=== PATIENT | female | born 1990 | race Caucasian/White ===

== ENCOUNTER 2020-02-02 11:22 | Outpatient (RCR) | payer OTHER, SELFPAY ==
[2020-02-02 13:25] LABS: Hematocrit 37.7 % (37.0-47.0); Hemoglobin 13.4 g/dL (12.0-15.0)
[2020-02-02 13:37] LABS: Glucose 1 Hour PP 50gm Dose 100 mg/dL
[2020-02-02 14:18] LABS: HIV 1/2 Ab P24 Ag Result Negative (Negative)
[2020-02-03 10:49] LABS: Rapid Plasma Reagin Non-Reactive (NonReactive)
[2020-02-03] MEDS: RHO(D) IMMUNE GLOBULIN 300 MCG SYRINGE IM (15:49)
== END 2020-05-02 23:59 | disposition home or self-care (01) ==
LOC: ANHLAB 11:22
PROVIDERS: Visit Provider Obstetrics & Gynecology
DX: Z11.4 Encounter for screening for human immunodeficiency virus [HIV] (principal); Z29.13 Encounter for prophylactic Rho(D) immune globulin; O36.0990 Maternal care for other rhesus isoimmunization, unspecified trimester, not applicable or unspecified; Z3A.00 Weeks of gestation of pregnancy not specified
CPT/HCPCS: 36415; 82947; 85014; 85018; 85461; 86592; 86703; 90384; 96372; G0432; J2790

== ENCOUNTER 2020-03-29 11:28 | Observation (INO) | payer OTHER, SELFPAY ==
[2020-03-29] VITALS (98 sets, daily range): BP systolic 73–115; BP diastolic 43–76; PULSE 64–104; TEMP 36.6; O2SAT 90–100
--- NOTE | 2020-03-29 11:28 | OBADM ---
This patient, Vida Vázquez, admitted to the OB room OB Post 112 for observation. Patient/family oriented to hospital policies and general routines including ID bracelet, bed and alarms, visiting hours, pain management, procedures, bathroom and other care routines, personal items, smoking policy, room service/diet, and visiting hours. Patient/Family are encouraged to report perceived risks to care and to ask questions if they do not understand what they are told or what they should do.
[2020-03-29 12:43] LABS: Basophils Percent Auto 0.5 % (0.2-1.2); Eosinophils Absolute Auto 0.1 K/mm3 (0-0.3); Eosinophils Percent Auto 1.1 % (0-4.4); Hematocrit 36.2 % (37.0-47.0); Hemoglobin 12.8 g/dL (12.0-15.0); Immature Granulocyte Absolute 0.12 K/mm3 (0.00-0.031); Immature Granulocyte Percent A 1.4 % (0-0.5); Lymphocytes Absolute Auto 2.07 K/mm3 (0.9-3.2); Mean Corpuscular HGB Conc 35.4 g/dl (32-36); Mean Corpuscular Hemoglobin 34.1 pg (26-34); Mean Corpuscular Volume 96.5 fl (80-100); Mean Platelet Volume 10.4 fl (7.4-10.4); Monocytes Absolute Auto 0.7 K/mm3 (0.1-0.6); Monocytes Percent Auto 8.7 % (2.6-8.5); Neutrophils Absolute Auto 5.2 K/mm3 (1.3-6.7); Neutrophils Percent Auto 63.3 % (45.5-73.1); Platelet Count Result 131 k/mm3 (150-375); Red Blood Count 3.75 M/mm3 (4.2-5.4); White Blood Count 8.3 K/mm3 (4.5-10.0)
[2020-03-29 12:50] LABS: Add Urine Microscopic? YES; Appearance Urine Clear (Clear); Bacteria Urine 3+ /hpf; Bilirubin Urine Negative (Negative); Blood Urine 3+ (Negative); Color Urine Yellow (Yellow); Glucose Urine UA 1+ mg/dL (Negative); Ketones Urine Negative (Negative); Leukocyte Esterase Ur Negative LEU/UL (NEGATIVE); Mucus Urine Moderate /lpf; Nitrate Urine Positive (Negative); Protein Urine 1+ mg/dL (Negative); Specific Grav Ur 1.027 (1.001-1.035); Squamous Epithelial Cell Urine Few /hpf (Few); Transitional Epi Cells Urine Rare /hpf (None Seen); Urobilinogen Urine Negative mg/dL (<2.0)
[2020-03-29 12:59] LABS: Alanine Aminotransferase 10 U/L (4-35); Albumin Level 3.1 g/dL (3.5-5.1); Alkaline Phosphatase 57 U/L (38-126); Anion Gap 4 mmol/L (8-16); Aspartate Amino Transferase 16 U/L (14-36); Bilirubin,Total 0.6 mg/dL (0.2-1.3); Blood Urea Nitrogen 8 mg/dL (7-17); Calcium 8.8 mg/dL (8.4-10.2); Carbon Dioxide 24 mmol/L (22-30); Chloride 108 mmol/L (98-107); Estimated Glomerular Filt Rate > 60; Glucose 114 mg/dL (65-105); Potassium 3.7 mmol/L (3.4-5.0); Sodium 136 mmol/L (137-145); Uric Acid 3.9 mg/dL (2.5-7.5)
[2020-03-29 13:24] LABS: Total Protein Urine Random 11 mg/dL; Ur Ttl Prot Creatinine Ratio 0.05 mg/mg (0-0.20)
--- NOTE | 2020-03-29 13:48 | PC.NURSE ---
Called Gin Pa CNM with lab result, heart rate and BPs. Orders received.
--- NOTE | 2020-03-29 13:54 | ECG_ITS ---
Measurements Intervals [place] Rate: 80 P: 20 PA: 144 QRS: 37 QRSD: 74 T: 22 QT: 380 QTc: 440 Interpretive Statements SINUS RHYTHM BASELINE ARTIFACT- I, III, AVL NORMAL ECG Electronically Signed On 03-29-2020 14:19:28 [employer] by Sivakumar Nielsen D.O.
--- NOTE | 2020-03-29 14:09 | PC.NURSE ---
Dr. Zhao called from OR. Informed that Gin Bautista CNM was called with report.
--- NOTE | 2020-03-29 14:30 | PC.NURSE ---
Message left at office for Dr. Nielsen for consult.
[2020-03-29] MEDS: ACETAMINOPHEN 500 MG TABLET 1000 MG PO (14:48)
--- NOTE | 2020-03-29 17:55 | PC.NURSE ---
Talked to Dr. Nielsen and report given on pt. Will come to evaluate pt.
--- NOTE | 2020-03-29 18:36 | PC.NURSE ---
Cap Blocker at bedside to examine pt.
--- NOTE | 2020-03-29 18:40 | PC.NURSE ---
Dr. Nielsen here to evaluate pt. No further orders received.
[2020-03-29] MEDS: NITROFURANTOIN MONOHYD MACROCR 100 MG CAP PO (18:43)
--- NOTE | 2020-03-29 18:46 | PM.CNCAR ---
Assessment and Plan Assessment and plan (1) Dizziness: Code(s): R42 - Dizziness and giddiness Status: Acute Assessment and Plan: Probably orthostatic related. Advise to keep well hydrated. If feeling dizzy while standing, advised to sit down and may even need to lie down. Advised to avoid lying on right side due to uterine compression of IVC which prevents adequate venous return. No further cardiac workup is needed. History of Present Illness History of Present Illness Consult date/time: 03/29/20 18:46 Reason for consult: Dizziness and fast HR. 29 [facility] due to symptoms of dizziness and fast HR. No prior cardiac problems. She is 35 weeks . This is her 4th and no issues previously other than gestational diabetes with her 3rd . She has been having steadily higher BP with this at 140's systolic. She reports it started a week ago where she feels her HR is fast and she gets dizziness with it and it happens while in upright position usually standing and sometimes sitting. It does not happen while lying down. She drinks about 2-3 liters of water a day. Her BP was noted to be low once at 73/44 mmHg then it went back up to 100/61 mmHg. Denies other symptoms including chest pain, sob, orthopnea, PND, edema. Reason For Visit: Elevated HR/Dizziness Review of Systems Constitutional: Constitutional: Reports as per HPI, Denies chills and Denies fever(s) Cardiovascular: Cardiovascular: Reports as per HPI, Denies chest pain, Denies leg edema and Reports lightheadedness Respiratory: Respiratory: Reports as per HPI and Denies dyspnea Gastrointestinal: Gastrointestinal: Reports as per HPI and Denies abdominal pain Genitourinary: Genitourinary: Reports as per HPI and Denies dysuria Musculoskeletal: Musculoskeletal: Reports as per HPI Neurologic: Reports as per HPI, Reports dizziness and Denies syncope PMF Past Medical History Medical History Currently Exposure to COVID-19 virus History of depression Surgical History Surgical History History of delivery History of umbilical hernia repair Family History Family History Father Cerebrovascular accident Hypertension Sibling Hypertension Grandparent Diabetes mellitus Hypertension Social History Social History Smoking status: Former smoker Tobacco type: cigarettes Alcohol intake: never 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 [employer] 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 Home Medications and Allergies Home Medications Medication Instructions Recorded Confirmed Type No Home Medications 02/10/20 02/27/20 History Allergies Allergy/AdvReac Type Severity Reaction Status Date / Time No Known Allergies Allergy Verified 02/26/20 15:09 Vital Signs Vital Signs - 24 hr 03/29/20 11:51 03/29/20 11:56 03/29/20 12:01 Pulse Rate 83 Blood Pressure 107/62 Pulse Oximetry 98 99 99 03/29/20 12:06 03/29/20 12:11 03/29/20 12:16 Pulse Rate 89 Blood Pressure 108/70 Pulse Oximetry 98 99 99 03/29/20 12:21 03/29/20 12:26 03/29/20 12:31 Pulse Rate Blood Pressure Pulse Oximetry 98 97 98 03/29/20 12:36 03/29/20 12:41 03/29/20 12:46 Pulse Rate 79 Blood Pressure 114/57 L Pulse Oximetry 99 97 98 03/29/20 12:48 03/29/20 12:53 03/29/20 12:58 Pulse Rate Blood Pressure Pulse Oximetry 98 97 97 03/29/20 13:01 03/29/20 13:03 03/29/20 13:08 Pulse Rate 87 Blood Pressure 97/49 L Pulse Oximetry 97 98 03/29/20 13:13 03/29/20 13:15 03/29/20 13:18 Pulse Rate 92 Blood Pressure 104/76 Pulse Oximetry 97 99 03/29/20 13:23 03/29/20 13:28 03/29/20 13:31 Pulse Rate 88 Blood Pressure 82/46 L Pu
[2020-03-29 19:12] LABS: Immature Platelet Fraction Pct 5.9 % (0.9-11.2); Mean Platelet Volume 10.4 fl (7.4-10.4); Platelet Count Result 158 k/mm3 (150-375)
--- NOTE | 2020-03-29 19:25 | PC.NURSE ---
Called Gin Pa CNM with lab results. June D/C home. Continue Macrobid as directed.
--- NOTE | 2020-04-25 20:11 | PM.IMHP ---
H&P: HPI History of Present Illness Date/Time: 04/25/20 20:11 this patient is 29-year-old female who is approximately 31 weeks gestation who reported dizziness in the office. She was admitted to be evaluated by Cardiology and to get echocardiogram in EKG. She has no symptoms of labor. She denies any loss of fluid or vaginal bleeding. She denies any nausea, vomiting, fever, chills. She denies any chest pain or shortness of breath. Chief Complaint: dizziness, Review of Systems Constitutional: Constitutional: Reports no additional constitutional complaints, Denies fatigue, Denies headache(s), Denies lethargy and Denies weakness Eyes: Eyes: Reports no additional eye complaints, Denies blurry vision and Denies photophobia ENT: Reports as per HPI, Denies headache(s) and Denies neck pain Cardiovascular: Cardiovascular: Denies chest pain, Denies diaphoresis, Denies leg edema, Denies palpitations and Denies dyspnea Respiratory: Respiratory: Denies hemoptysis, Denies dyspnea and Denies wheezing Gastrointestinal: Gastrointestinal: Denies abdominal pain, Denies melena, Denies bloating, Denies hematochezia, Denies nausea and Denies vomiting Genitourinary: Genitourinary: Reports no additional female genitourinary complaints Musculoskeletal: Musculoskeletal: Denies joint swelling, Denies neck pain, Denies numbness and Denies stiffness Neurologic: Denies Abnormal speech present, Denies confusion, Denies headache(s), Denies numbness and Denies weakness Psychiatric: Psychiatric: Denies anxiety, Denies confusion, Denies depression, Denies homicidal ideation and Denies suicidal ideation Endocrine: Endocrine: Denies fatigue and Denies palpitations Allergic/Immunologic: Allergic/Immunologic: Denies wheezing [facility], [facility] Past Medical History Medical History (Updated 04/14/20 @ 07:42 by Marielena Zhao MD) Currently Exposure to COVID-19 virus Gestational HTN History of depression Morbid obesity with BMI of 50.0-59.9, adult Surgical History Surgical History (Updated 04/12/20 @ 16:16 by Marielena Zhao MD) History of delivery History of umbilical hernia repair Family History Family History Father Cerebrovascular accident Hypertension Sibling Hypertension Grandparent Diabetes mellitus Hypertension Social History Social History Smoking packs per day: 0.5 Smoking cigarettes per day: 10.0 Years smoked: 17 Smoking pack-years: 8.50 Smoking status: Former smoker Tobacco type: cigarettes Second hand tobacco smoke exposure: No Alcohol intake: never Substance use: never Additional occupation/education comments: [employer] Spiritual care concerns: No Meds Home Medications and Allergies Home Medications Medication Instructions Recorded Confirmed Type prenat.vits,meenakshi,[id number] 1 tablet PO DAILY 04/06/20 04/08/20 History hydrocodone-acetaminophen 1 - 2 tablet PO Q4H PRN #25 tablet 04/14/20 Rx Allergies Allergy/AdvReac Type Severity Reaction Status Date / Time No Known Allergies Allergy Verified 04/06/20 15:34 Exam Const: General: healthy appearing, comfortable and no acute distress; No confusion Orientation/consciousness: No confusion Eyes: Direct Ophthalmoscopy: No photophobia Resp: Auscultation: clear to auscultation bilaterally, no rales, no rhonchi and no wheezes Cardio: Rate: regular rate Heart sounds: no click, no murmurs and no rubs GI: Inspection: non-distended GI Palp: No abdominal tenderness Auscultation: normal bowel sounds Neuro: General: No confusion Speech: No Abnormal speech present Extrem: General: normal to inspection, no pedal edema and no calf tenderness Assessment and Plan Assessment and plan (1) Dizziness: Code(s): R42 - Dizziness and giddiness Status: Acute (2) 31 weeks gestation of :
--- NOTE | 2020-05-17 09:40 | P.DS_ITS ---
DS: Admitting Diagnosis Admitting Diagnosis Admitting Diagnosis: dyspnea DS: Discharge Diagnosis Discharge Diagnosis (1) Dyspnea: Code(s): R06.00 - Dyspnea, unspecified Status: Acute OB - DS: Summary OB Procedures : Other (cardiology consult) OB Procedures Intrapartum: Other OB Procedures: : None Time Spent with Patient Time attestation: Total time spent providing and/or coordinating discharge services: Discharge Plan Discharge Consulting providers: Sivakumar Nielsen Discharging Clinician: Coco Pa Patient Disposition: Home, Self-Care Activity: as tolerated Diet: regular Discharge Instructions: OB ANTEPARTUM DISCHARGE INSTRUCTIONS This information is given to help you properly care for yourself at home after your discharge from the hospital. Follow these instructions until your doctor tells you otherwise. DIET: Eat Three Well Balanced Meals per Day Drink at Least Eight 8-Ounce Glasses of Caffeine-Free Beverages Daily Additional Diet Instructions: ACTIVITY: As Tolerated Additional Activity Instructions: RETURN TO LABOR AND DELIVERY IF YOU HAVE: Any Change In Baby's Normal Movement Pattern Any Leakage of Fluid More than 6 Contractions in an Hour Vaginal Bleeding Additional Reasons to Return to Labor and Delivery: Contractions may feel like abdominal pain, tightening, cramping, pressure, back ache, or thigh ache. 24 Hour Urine Collection: Continue 24 hour urine collection until at . When collection is completed, return specimen to the [facility]. See handout for 24 hour urine collection. OTHER INSTRUCTIONS: FOLLOW-UP CARE: Keep Next Scheduled Appointment To see in/on Valuables released to patient or family? Medications from home returned to patient? I Acknowledge Receipt of and Understand the Above Instructions IF YOU HAVE ANY QUESTIONS REGARDING THESE INSTRUCTIONS, PLEASE CALL [phone]. IF PROBLEMS ARISE, CALL YOUR PROVIDER. IF EMERGENCY CARE IS NEEDED, [facility] EMERGENCY ROOM IS AVAILABLE 24 HOURS A DAY. Stand Alone Forms: General Discharge Information Follow-up/Referrals: Marielena Zhao MD [Physician] - Discharge Medications: No Action prenat.vits,meenakshi,[id number]-eguly Tablet 1 tablet PO DAILY RF: 0 hydrocodone-acetaminophen 5-325 mg tablet 1 - 2 tablet PO Q4H PRN (Reason: pain) Qty: 25 RF: 0 Date of admission: 03/29/20 11:28 Primary Care Provider: CharleenKatie Admitting Provider: Marielena Zhao Attending physician on admission: Marielena Zhao Condition: Stable
== END 2020-03-29 19:40 | disposition home or self-care (01) ==
PROVIDERS: Advanced Practice Midwife; Admitting Provider Obstetrics & Gynecology; PCP Nurse Practitioner Family; Visit Provider Obstetrics & Gynecology
DX: O26.893 Other specified pregnancy related conditions, third trimester (principal); R42 Dizziness and giddiness; Z3A.35 35 weeks gestation of pregnancy; Z87.891 Personal history of nicotine dependence
CPT/HCPCS: 36415; 59025; 80053; 81001; 82570; 84156; 84550; 85025; 85049; 85055; 87077; 87086; 87088; 93005; A9270; G0378; G0379

== ENCOUNTER 2020-04-08 16:19 | Observation (INO) | payer OTHER, SELFPAY ==
[2020-04-08] VITALS (22 sets, daily range): BP systolic 105–165; BP diastolic 50–103; PULSE 69–111; BMI 51.7
[2020-04-08 11:52] LABS: Basophils Percent Auto 0.4 % (0.2-1.2); Eosinophils Absolute Auto 0.1 K/mm3 (0-0.3); Eosinophils Percent Auto 1.1 % (0-4.4); Hematocrit 37.4 % (37.0-47.0); Hemoglobin 13.2 g/dL (12.0-15.0); Immature Granulocyte Absolute 0.08 K/mm3 (0.00-0.031); Lymphocytes Absolute Auto 2.31 K/mm3 (0.9-3.2); Lymphocytes Percent Auto 28.2 % (18.3-44.2); Mean Corpuscular HGB Conc 35.3 g/dl (32-36); Mean Corpuscular Hemoglobin 34.4 pg (26-34); Mean Corpuscular Volume 97.4 fl (80-100); Mean Platelet Volume 10.6 fl (7.4-10.4); Monocytes Absolute Auto 0.8 K/mm3 (0.1-0.6); Monocytes Percent Auto 10.2 % (2.6-8.5); Neutrophils Absolute Auto 4.9 K/mm3 (1.3-6.7); Neutrophils Percent Auto 59.1 % (45.5-73.1); Platelet Count Result 134 k/mm3 (150-375); Red Blood Count 3.84 M/mm3 (4.2-5.4); Red Cell Distribution Width 13.2 % (11.5-14.5); White Blood Count 8.2 K/mm3 (4.5-10.0)
[2020-04-08 12:01] LABS: Alanine Aminotransferase 10 U/L (4-35); Albumin Level 3.3 g/dL (3.5-5.1); Alkaline Phosphatase 70 U/L (38-126); Anion Gap 3 mmol/L (8-16); Aspartate Amino Transferase 19 U/L (14-36); Bilirubin,Total 0.8 mg/dL (0.2-1.3); Blood Urea Nitrogen 8 mg/dL (7-17); Calcium 9.2 mg/dL (8.4-10.2); Carbon Dioxide 27 mmol/L (22-30); Chloride 106 mmol/L (98-107); Estimated Glomerular Filt Rate > 60; Glucose 78 mg/dL (65-105); Potassium 3.8 mmol/L (3.4-5.0); Sodium 136 mmol/L (137-145); Uric Acid 4.3 mg/dL (2.5-7.5)
--- NOTE | 2020-04-08 12:01 | PC.NURSE ---
Pt had the regular size BP cuff on for BP's.
[2020-04-08 12:24] LABS: Add Urine Microscopic? YES; Amorphous Sediment Urine Few; Appearance Urine Cloudy (Clear); Bacteria Urine 2+ /hpf; Bilirubin Urine Negative (Negative); Blood Urine 2+ (Negative); Color Urine Yellow (Yellow); Glucose Urine UA Negative (Negative); Ketones Urine Negative (Negative); Leukocyte Esterase Ur Negative LEU/UL (NEGATIVE); Mucus Urine Rare /lpf; Nitrate Urine Negative (Negative); Protein Urine 1+ mg/dL (Negative); Specific Grav Ur 1.019 (1.001-1.035); Squamous Epithelial Cell Urine Moderate /hpf (Few)
--- NOTE | 2020-04-08 13:17 | PC.NURSE ---
BP cuff changed to the appropriate size large cuff.
[2020-04-08 13:22] LABS: Creatinine Urine 37.6 mg/dL; Total Protein Urine Random 13 mg/dL; Ur Ttl Prot Creatinine Ratio 0.35 mg/mg (0-0.20)
[2020-04-08 15:56] LABS: Mean Platelet Volume 10.4 fl (7.4-10.4); Platelet Count Result 129 k/mm3 (150-375)
--- NOTE | 2020-04-08 16:19 | PC.NURSE ---
Gin HOANGM informed of slight drop in platelet count from 134 to 129. Updated on BP's. Orders received to change to observation, keep overnight, continue 24 hr urine collection that was started at 1400, NST q8 hr,and regular diet. To repeat labs in am.
[2020-04-09 02:33] VITALS: BP 92/49; PULSE 79
[2020-04-09 05:32] VITALS: BP 108/37; PULSE 72
[2020-04-09 05:52] LABS: Hematocrit 37.6 % (37.0-47.0); Hemoglobin 13.2 g/dL (12.0-15.0); Mean Corpuscular HGB Conc 35.1 g/dl (32-36); Mean Corpuscular Hemoglobin 34.5 pg (26-34); Mean Corpuscular Volume 98.2 fl (80-100); Mean Platelet Volume 10.4 fl (7.4-10.4); Platelet Count Result 129 k/mm3 (150-375); Red Blood Count 3.83 M/mm3 (4.2-5.4); Red Cell Distribution Width 13.2 % (11.5-14.5); White Blood Count 9.6 K/mm3 (4.5-10.0)
[2020-04-09 06:08] LABS: Alanine Aminotransferase 10 U/L (4-35); Alkaline Phosphatase 67 U/L (38-126); Anion Gap 6 mmol/L (8-16); Aspartate Amino Transferase 18 U/L (14-36); Bilirubin,Total 0.6 mg/dL (0.2-1.3); Blood Urea Nitrogen 6 mg/dL (7-17); Calcium 8.7 mg/dL (8.4-10.2); Carbon Dioxide 23 mmol/L (22-30); Chloride 107 mmol/L (98-107); Estimated CRCL calculation 255 ml/min; Estimated Glomerular Filt Rate > 60; Glucose 92 mg/dL (65-105); Potassium 3.9 mmol/L (3.4-5.0); Sodium 136 mmol/L (137-145); Uric Acid 4.1 mg/dL (2.5-7.5)
[2020-04-09 06:56] VITALS: BP 122/66; PULSE 77
[2020-04-09 07:09] VITALS: TEMP 36.6
--- NOTE | 2020-04-09 07:30 | PM.IMHP ---
H&P: HPI History of Present Illness Date/Time: 04/09/20 07:30 Chief Complaint: HTN Narrative: Vida Vázquez is a 29 year old female who presented for pIH labs and 24 hour urine, bp's normotensive since arrival and platelets stable, 24 hour urine completes today around 1400. 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 Spiritual care concerns: No Meds Home Medications and Allergies Home Medications Medication Instructions Recorded Confirmed Type prenat.vits,meenakshi,[id number]-awqxp 1 tablet PO DAILY 04/06/20 04/08/20 History [ #2] Allergies Allergy/AdvReac Type Severity Reaction Status Date / Time No Known Allergies Allergy Verified 04/06/20 15:34 Vital Signs Vital Signs - 24 hr 04/08/20 11:01 04/08/20 11:03 04/08/20 11:17 Temperature Pulse Rate 88 79 111 H Blood Pressure 137/65 120/63 112/50 L Blood Pressure [Left Arm] 04/08/20 11:46 04/08/20 12:01 04/08/20 12:31 Temperature Pulse Rate 70 79 79 Blood Pressure 159/61 H 165/82 H 138/73 Blood Pressure [Left Arm] 04/08/20 12:46 04/08/20 13:01 04/08/20 13:17 Temperature Pulse Rate 78 69 79 Blood Pressure 126/86 126/77 127/70 Blood Pressure [Left Arm] 04/08/20 13:18 04/08/20 13:32 04/08/20 13:46 Temperature Pulse Rate 79 81 Blood Pressure 112/64 127/103 H Blood Pressure [Left Arm] 127/70 04/08/20 14:01 04/08/20 14:33 04/08/20 15:51 Temperature Pulse Rate 74 77 87 Blood Pressure 126/70 122/62 140/77 Blood Pressure [Left Arm] 04/08/20 16:56 04/08/20 18:30 04/08/20 20:52 Temperature Pulse Rate 88 82 81 Blood Pressure 136/80 120/60 108/52 L Blood Pressure [Left Arm] 04/08/20 21:01 04/08/20 21:16 04/08/20 21:32 Temperature Pulse Rate 78 80 77 Blood Pressure 117/57 L 121/67 105/76 Blood Pressure [Left Arm] 04/08/20 22:36 04/09/20 02:33 04/09/20 05:32 Temperature Pulse Rate 75 79 72 Blood Pressure 107/57 L 92/49 L 108/37 L Blood Pressure [Left Arm] 04/09/20 06:56 04/09/20 07:09 Temperature 36.6 C Pulse Rate 77 Blood Pressure 122/66 Blood Pressure [Left Arm] Exam Const: General: cooperative Limitations: no limitations Psych: Affect: normal affect Thought process: Normal thought process present Thought content: Yes Normal thought content present Judgement: Good judgement present (Psych) H&P: Results Labs Labs: Short CBC 04/08/20 04/08/20 04/09/20 Range/Units 11:27 15:44 05:40 WBC 8.2 9.6 (4.5-10.0) K/mm3 Hgb 13.2 13.2 (12.0-15.0) g/dL Hct 37.4 37.6 (37.0-47.0) % Plt Count 134 L 129 L 129 L (150-375) k/mm3 BMP 04/08/20 04/09/20 11:27 05:40 Sodium 136 L 136 L Potassium 3.8 3.9 Chloride 106 107 Carbon Dioxide 27 23 BUN 8 6 L Creatinine 0.50 L 0.40 L Glucose 78 92 Calcium 9.2 8.7 Liver Function 04/08/20 04/09/20 Range/Units 11:27 05:40 Total Bilirubin 0.8 0.6 (0.2-1.3) mg/dL AST 19 18 (14-36) U/L ALT 10 10 (4-35) U/L Alkaline Phosphatase 70 67 (38-126) U/L Albumin 3.3 L 3.0 L (3.5-5.1) g/dL Urine 04/08/20 Range/Units 11:27 Urine Color Yellow (Yellow) Ur
[2020-04-09 11:03] VITALS: BP 120/50; PULSE 82
[2020-04-09 14:14] LABS: Hematocrit 38.2 % (37.0-47.0); Hemoglobin 13.3 g/dL (12.0-15.0); Mean Corpuscular HGB Conc 34.8 g/dl (32-36); Mean Corpuscular Hemoglobin 34.4 pg (26-34); Mean Corpuscular Volume 98.7 fl (80-100); Mean Platelet Volume 10.6 fl (7.4-10.4); Platelet Count Result 127 k/mm3 (150-375); Red Blood Count 3.87 M/mm3 (4.2-5.4); Red Cell Distribution Width 13.2 % (11.5-14.5)
[2020-04-09 14:20] VITALS: BP 129/65; PULSE 81
[2020-04-09 14:28] LABS: Alanine Aminotransferase 10 U/L (4-35); Albumin Level 3.3 g/dL (3.5-5.1); Alkaline Phosphatase 75 U/L (38-126); Anion Gap 2 mmol/L (8-16); Aspartate Amino Transferase 19 U/L (14-36); Bilirubin,Total 0.8 mg/dL (0.2-1.3); Blood Urea Nitrogen 5 mg/dL (7-17); Calcium 8.5 mg/dL (8.4-10.2); Carbon Dioxide 26 mmol/L (22-30); Chloride 107 mmol/L (98-107); Estimated CRCL calculation 210 ml/min; Estimated Glomerular Filt Rate > 60; Glucose 103 mg/dL (65-105); Sodium 135 mmol/L (137-145)
--- NOTE | 2020-04-09 14:41 | PC.NURSE ---
1440--PI labs reviewed with Chung Alberts CNM, orders to DC home with PI precautions and schedule for IOL for Sunday04/12/20.
[2020-04-09 17:31] LABS: Collection Time Urine 24 HOURS
[2020-04-09 17:41] LABS: Patient Weight 330 Lbs; Total Volume 24 Hour Urine 3300 ml
[2020-04-09 17:47] LABS: Total Protein Urine 24 Hr 396 MG/DAY (28-141); Total Protein Urine Random 12 mg/dL
[2020-04-09 17:48] LABS: Creatinine Clearance Urine 201.9 ml/min (75-125); Creatinine Urine 63.5 mg/dL
[2020-04-09 17:58] LABS: Specific Gravity Ur 1.011; Total Volume 24 Hour Urine 3300 ml
== END 2020-04-09 15:01 | disposition home or self-care (01) ==
LOC: ANHOBOP 17:42 → ANHOBPP 17:42
PROVIDERS: Advanced Practice Midwife; Admitting Provider Obstetrics & Gynecology; PCP Nurse Practitioner Family; Visit Provider Obstetrics & Gynecology
DX: O13.3 Gestational [pregnancy-induced] hypertension without significant proteinuria, third trimester (principal); Z3A.36 36 weeks gestation of pregnancy; Z87.891 Personal history of nicotine dependence
CPT/HCPCS: 36415; 59025; 80053; 81001; 81050; 82570; 82575; 84156; 84550; 85025; 85027; 85049; G0378; G0379

== ENCOUNTER 2020-04-12 05:54 | Inpatient (IN) | payer OTHER, SELFPAY ==
[2020-04-12] VITALS (60 sets, daily range): BP systolic 83–154; BP diastolic 47–85; PULSE 59–113; RESP 14–20; TEMP 36.7–37.1; O2SAT 94–99; BMI 51.7
--- NOTE | ~2020-04-12 | US_ITS ---
EXAMINATION: US OB limited EXAM DATE: 04/12/2020 13:35 INDICATION: presentation and OWEN at bedside please. 3rd trimester. TECHNIQUE: Pelvic obstetrical transabdominal sonogram was performed by a technologist. There are mu ltiple grayscale and Doppler images available for interpretation. There are no earlier studies of th is gestation for comparison. FINDINGS: There is a single fetus identified in transverse presentation with a heart rate of 137 beat s per minute. The placenta is located in the anterior position. There is no sonographic evidence of retroplacental hemorrhage identified. AMNIOTIC FLUID INDEX Quadrant 1: 2.1 cm Quadrant 2: 0 cm Quadrant 3: 2.8 cm Quadrant 4: 3.2 cm Amniotic fluid index: 8.2 cm. (The 5th -- 95th percentile range is 7.5-24.4). IMPRESSION: 1. Single fetus in transverse presentation with heart rate 137 beats per minute. 2. OWEN 8.2 cm, lower limits of normal. Reviewed, dictated and finalized at location [facility] [employer] IMPRESSION: 1. Single fetus in transverse presentation with heart rate 137 beats per minut e. 2. OWEN 8.2 cm, lower limits of normal.
[2020-04-12 06:42] LABS: Basophils Percent Auto 0.4 % (0.2-1.2); Eosinophils Absolute Auto 0.1 K/mm3 (0-0.3); Eosinophils Percent Auto 1.1 % (0-4.4); Hematocrit 38.8 % (37.0-47.0); Hemoglobin 13.6 g/dL (12.0-15.0); Lymphocytes Absolute Auto 2.13 K/mm3 (0.9-3.2); Lymphocytes Percent Auto 22.1 % (18.3-44.2); Mean Corpuscular HGB Conc 35.1 g/dl (32-36); Mean Corpuscular Hemoglobin 34.3 pg (26-34); Mean Platelet Volume 10.5 fl (7.4-10.4); Monocytes Absolute Auto 0.8 K/mm3 (0.1-0.6); Monocytes Percent Auto 7.9 % (2.6-8.5); Neutrophils Absolute Auto 6.5 K/mm3 (1.3-6.7); Neutrophils Percent Auto 67.5 % (45.5-73.1); Platelet Count Result 134 k/mm3 (150-375); Red Blood Count 3.96 M/mm3 (4.2-5.4); Red Cell Distribution Width 13.2 % (11.5-14.5); White Blood Count 9.6 K/mm3 (4.5-10.0)
[2020-04-12] MEDS: LACTATED RINGERS 1,000 ML 125 ML IV CONT ×2 (06:43→14:42)
[2020-04-12] MEDS: AMPICILLIN 2 GM/NS 100 ML 2 GM/100 ML BAG IVPB (06:44)
[2020-04-12 06:46] LABS: Alanine Aminotransferase 10 U/L (4-35); Albumin Level 3.3 g/dL (3.5-5.1); Alkaline Phosphatase 73 U/L (38-126); Anion Gap 5 mmol/L (8-16); Aspartate Amino Transferase 19 U/L (14-36); Bilirubin,Total 0.8 mg/dL (0.2-1.3); Blood Urea Nitrogen 12 mg/dL (7-17); Carbon Dioxide 25 mmol/L (22-30); Chloride 106 mmol/L (98-107); Estimated Glomerular Filt Rate > 60; Glucose 101 mg/dL (65-105); Potassium 4.2 mmol/L (3.4-5.0); Sodium 136 mmol/L (137-145); Uric Acid 4.5 mg/dL (2.5-7.5)
[2020-04-12] MEDS: OXYTOCIN 30 UNITS/NS 500 ML 30 UNITS/500 ML BAG IV CONT (06:47)
--- NOTE | 2020-04-12 07:00 | LDADM ---
This patient, Vida Vázquez, was admitted to Labor/Delivery/Recovery 102 on 04/12/20 at 05:54. Plans for labor, pain management and were discussed with patient. Patient/family oriented to hospital policies and general routines including ID bracelet, bed and alarms, visiting hours, pain management, procedures, bathroom and other care routines, personal items, smoking policy, room service/diet and guest tray routines, security routines, and visiting hours. Patient/Family are encouraged to report perceived risks to care and to ask questions if they do not understand what they are told or what they should do. See OBIX for further documentation.
--- NOTE | 2020-04-12 07:40 | PM.IMHP ---
H&P: HPI History of Present Illness Date/Time: 04/12/20 07:40 Chief Complaint: Induction of labor Narrative: Vida Vázquez is a 29 year old female @ 37w2d here for induction of labor d/t gestational hypertension. Previous and successful . Review of Systems Review of Systems: All systems reviewed & are unremarkable except as noted in HPI and below Constitutional: Constitutional: Reports no additional constitutional complaints PMFSH Past Medical History Medical History Currently Exposure to COVID-19 virus History of depression Surgical History Surgical History History of delivery History of umbilical hernia repair Family History Family History Father Cerebrovascular accident Hypertension Sibling Hypertension Grandparent Diabetes mellitus Hypertension Social History Social History Smoking packs per day: 0.5 Smoking cigarettes per day: 10.0 Years smoked: 17 Smoking pack-years: 8.50 Smoking status: Former smoker Tobacco type: cigarettes Second hand tobacco smoke exposure: No Alcohol intake: never Substance use: never 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 Spiritual care concerns: No Meds Home Medications and Allergies Home Medications Medication Instructions Recorded Confirmed Type prenat.vits,meenakshi,yrq-yqvl-smbpv 1 tablet PO DAILY 04/06/20 04/08/20 History Allergies Allergy/AdvReac Type Severity Reaction Status Date / Time No Known Allergies Allergy Verified 04/06/20 15:34 Vital Signs Vital Signs - 24 hr 04/12/20 06:50 04/12/20 06:53 04/12/20 07:01 Temperature 98.3 F Pulse Rate 77 82 Blood Pressure 137/76 142/73 H 04/12/20 07:16 04/12/20 07:31 04/12/20 07:34 Temperature Pulse Rate 79 77 71 Blood Pressure 134/66 142/72 H 130/61 Exam Const: General: no acute distress Resp: Effort & Inspection: normal respiratory effort Auscultation: clear to auscultation bilaterally Cardio: Rate: regular rate Rhythm: regular rhythm GI: GI Palp: Yes Soft to palpation (Gravid. Rare contractions FHR category 1.) : External Female Exam: normal external appearance Skin: General skin exam: normal color Neuro: General: gait normal Speech: normal speech Psych: Mental Status: mental status grossly normal H&P: Results Labs Labs: Short CBC 04/12/20 Range/Units 06:26 WBC 9.6 (4.5-10.0) K/mm3 Hgb 13.6 (12.0-15.0) g/dL Hct 38.8 (37.0-47.0) % Plt Count 134 L (150-375) k/mm3 BMP 04/12/20 06:26 Sodium 136 L Potassium 4.2 Chloride 106 Carbon Dioxide 25 BUN 12 D Creatinine 0.50 L Glucose 101 Calcium 9.0 Liver Function 04/12/20 Range/Units 06:26 Total Bilirubin 0.8 (0.2-1.3) mg/dL AST 19 (14-36) U/L ALT 10 (4-35) U/L Alkaline Phosphatase 73 (38-126) U/L Albumin 3.3 L (3.5-5.1) g/dL Assessment and Plan Assessment and plan (1) Gestational hypertension: Code(s): O13.9 - Gestational [-induced] hypertension without significant proteinuria, unspecified trimester Status: Acute (2) Encounter for induction of labor: Code(s): Z34.90 - Encounter for supervision of normal , unspecified, unspecified trimester Status: Acute Assessment and Plan: Low dose pitocin. Once vertex at a better station will rupture membranes. Discussed risks of in great detail including risk of rupture which could be life threatening to mom and baby.
[2020-04-12 08:43] LABS: Rapid Plasma Reagin Non-Reactive (NonReactive)
[2020-04-12] MEDS: AMPICILLIN 1 GM/NS 50 ML 1 GM/50 ML BAG IVPB (11:03)
--- NOTE | 2020-04-12 13:31 | WPDANESEPPF ---
Anes - Initial Pre Proc Eval Date/Time: 04/12/20 13:31 Surgeon: Marielena Zhao MD Pre Op Diagnosis: IOL Patient Data Age: 29 Gender: F Height: 1.7 m Weight: 150 kg Last Vital Signs Temp 36.9 C 04/12/20 10:30 Pulse 74 04/12/20 13:30 BP 145/81 H 04/12/20 13:30 Allergies Allergy/AdvReac Type Severity Reaction Status Date / Time No Known Allergies Allergy Verified 04/06/20 15:34 Home Medications Medication Instructions Recorded Confirmed Type prenat.vits,meenakshi,fjn-lvcw-fljoe 1 tablet PO DAILY 04/06/20 04/08/20 History Laboratory Tests 04/12/20 04/12/20 04/12/20 06:26 06:26 06:26 WBC 9.6 K/mm3 K/mm3 (4.5-10.0) RBC 3.96 M/mm3 L M/mm3 (4.2-5.4) Hgb 13.6 g/dL g/dL (12.0-15.0) Hct 38.8 % % (37.0-47.0) MCV 98.0 fl fl (80-100) MCH 34.3 pg H pg (26-34) MCHC 35.1 g/dl g/dl (32-36) RDW 13.2 % % (11.5-14.5) Plt Count 134 k/mm3 L k/mm3 (150-375) MPV 10.5 fl H fl (7.4-10.4) Immature Gran % (Auto) 1.0 % H % (0-0.5) Neut % (Auto) 67.5 % % (45.5-73.1) Lymph % (Auto) 22.1 % % (18.3-44.2) [place] % (Auto) 7.9 % % (2.6-8.5) Eos % (Auto) 1.1 % % (0-4.4) Baso % (Auto) 0.4 % % (0.2-1.2) Lymph # (Auto) 2.13 K/mm3 K/mm3 (0.9-3.2) [place] # (Auto) 0.8 K/mm3 H K/mm3 (0.1-0.6) Eos # (Auto) 0.1 K/mm3 K/mm3 (0-0.3) Baso # (Auto) 0.0 K/mm3 K/mm3 (0.0-0.1) Abs Immat Gran (auto) 0.10 K/mm3 H K/mm3 (0.00-0.031) Absolute Neuts (auto) 6.5 K/mm3 K/mm3 (1.3-6.7) Absolute Nucleated RBC 0.0 K/mm3 K/mm3 (0.0-0.012) Nucleated RBC % 0.0 % % (0.0-0.2) Sodium Potassium Chloride Carbon Dioxide Anion Gap BUN Creatinine Estim Creat Clear Calc Estimated GFR Glucose Uric Acid Calcium Total Bilirubin AST ALT Alkaline Phosphatase Total Protein Albumin RPR Non-reactive (NonReactive) Blood Type A Negative Antibody Screen Negative 04/12/20 06:26 WBC RBC Hgb Hct MCV MCH MCHC RDW Plt Count MPV Immature Gran % (Auto) Neut % (Auto) Lymph % (Auto) [place] % (Auto) Eos % (Auto) Baso % (Auto) Lymph # (Auto) [place] # (Auto) Eos # (Auto) Baso # (Auto) Abs Immat Gran (auto) Absolute Neuts (auto) Absolute Nucleated RBC Nucleated RBC % Sodium 136 mmol/L L mmol/L (137-145) Potassium 4.2 mmol/L mmol/L (3.4-5.0) Chloride 106 mmol/L mmol/L (98-107) Carbon Dioxide 25 mmol/L mmol/L (22-30) Anion Gap 5 mmol/L L mmol/L (8-16) BUN 12 mg/dL D mg/dL (7-17) Creatinine 0.50 mg/dL L mg/dL (0.7-1.0) Estim Creat Clear Calc Not Reportable Estimated GFR > 60 (59 - ) Glucose 101 mg/dL mg/dL (65-105) Uric Acid 4.5 mg/dL mg/dL (2.5-7.5) Calcium 9.0 mg/dL mg/dL (8.4-10.2) Total Bilirubin 0.8 mg/dL mg/dL (0.2-1.3) AST 19 U/L U/L (14-36) ALT 10 U/L U/L (4-35) Alkaline Phosphatase 73 U/L U/L (38-126) Total Protein 6.0 g/dL L g/dL (6.3-8.2) Albumin 3.3 g/dL L g/dL (3.5-5.1) RPR Blood Type Antibody Screen Patient hx anesthesia problems: none Family hx anesthesia problems: none [facility] Past Medical History Medical History (Updated 04/12/20 @ 13:32 by Iain Rosales MD) Currently Exposure to COVID-19 virus Gestational HTN History of depression Morbid obesity with BMI of 50.0-59.9, adult Surgical History Surgical History (Reviewed 04/12/20 @ 07:4
--- NOTE | 2020-04-12 13:53 | PM.OBPNLAB ---
Pain Control Date/time seen: 04/12/20 13:53 Unable to reach presenting part during exam. U/S found infant in transverse presentation. Official u/s ordered and confirmed. Pt desires to proceed with section. Dr Zhao notified.
[2020-04-12] MEDS: LACTATED RINGERS 1,000 ML 999 ML IV CONT (15:52)
--- NOTE | 2020-04-12 16:14 | WPDHPUPDATE1 ---
History and Physical Update Update Date/Time: 04/12/20 16:14 History and Physical has been reviewed, including an updated exam of the patient. There are NO changes in the patient's condition. Risks, benefits, and alternatives have been discussed and questions answered. Patient agrees to proceed with procedure.
--- NOTE | 2020-04-12 16:14 | PM.IMHP ---
H&P: HPI History of Present Illness Date/Time: 04/12/20 16:14 Chief Complaint: Term Narrative: Vida Vázquez is a 29 year old female who presented for induction of labor. She is 37 weeks and has gestational hypertension. The fetus was found to be in transverse position. We agreed not to attempt a external cephalic version. We agreed to proceed with delivery. She understands the risk of delivery. She understands that injuries may occur. She understands that injuries could result in hospitalization, more surgery, severe illness. She understands there is a risk of hemorrhage and infection. She denies any nausea, vomiting, fever, chills. She denies any chest pain or shortness of breath. Review of Systems Constitutional: Constitutional: Reports no additional constitutional complaints, Denies fatigue, Denies headache(s), Denies lethargy and Denies weakness Eyes: Eyes: Reports no additional eye complaints, Denies blurry vision and Denies photophobia ENT: Reports as per HPI, Denies headache(s) and Denies neck pain Cardiovascular: Cardiovascular: Denies chest pain, Denies diaphoresis, Denies leg edema, Denies palpitations and Denies dyspnea Respiratory: Respiratory: Denies hemoptysis, Denies dyspnea and Denies wheezing Gastrointestinal: Gastrointestinal: Denies abdominal pain, Denies melena, Denies bloating, Denies hematochezia, Denies nausea and Denies vomiting Genitourinary: Genitourinary: Reports no additional female genitourinary complaints Musculoskeletal: Musculoskeletal: Denies joint swelling, Denies neck pain, Denies numbness and Denies stiffness Neurologic: Denies Abnormal speech present, Denies confusion, Denies headache(s), Denies numbness and Denies weakness Psychiatric: Psychiatric: Denies anxiety, Denies confusion, Denies depression, Denies homicidal ideation and Denies suicidal ideation Endocrine: Endocrine: Denies fatigue and Denies palpitations Allergic/Immunologic: Allergic/Immunologic: Denies wheezing PMFSH Past Medical History Medical History (Updated 04/12/20 @ 13:32 by Iain Rosales MD) Currently Exposure to COVID-19 virus Gestational HTN History of depression Morbid obesity with BMI of 50.0-59.9, adult Surgical History Surgical History (Updated 04/12/20 @ 16:16 by Marielena Zhao MD) History of delivery History of umbilical hernia repair Family History Family History Father Cerebrovascular accident Hypertension Sibling Hypertension Grandparent Diabetes mellitus Hypertension Social History Social History Smoking packs per day: 0.5 Smoking cigarettes per day: 10.0 Years smoked: 17 Smoking pack-years: 8.50 Smoking status: Former smoker Tobacco type: cigarettes Second hand tobacco smoke exposure: No Alcohol intake: never Substance use: never 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 Spiritual care concerns: No Meds Home Medications and Allergies Home Medications Medication Instructions Recorded Confirmed Type prenat.vits,meenakshi,oxf-uqdw-fagip 1 tablet PO DAILY 04/06/20 04/08/20 History Allergies Allergy/AdvReac Type Severity Reaction Status Date / Time No Known Allergies Allergy Verified 04/06/20 15:34 Vital Signs Vital Signs - 24 hr 04/12/20 06:50 04/12/20 06:53 04/12/20 07:01 Temperature 98.3 F Pulse Rate 77 82 Blood Pressure 137/76 142/73 H 04/12/20 07:16 04/12/20 07:31 04/12/20 07:34 Temperature Pulse Rate 79 77 71 Blood Pressure 134/66 142/72 H 130/61 04/12/20 07:46 04/12/20 08:01 04/12/20 08:15 Temperature Pulse Rate 77 77 74 Blood Pressure 135/73 138/73 141/74 H 04/12/20 08:30 04/12/20 09:00 04/12/20 09:31 Temperature Pulse Rate 68 79 78 Blood Pressure 129/66 144/82 H 131/78 04/12/20 10:01 04/12/20 10:30 04/12/20 10:31
--- NOTE | 2020-04-12 17:35 | PM.PROC ---
Procedure Note - Detailed Date of procedure: 04/12/20 Pre-op diagnosis: IOL, breech presentation Post-op diagnosis: same Procedure performed: low-transverse delivery, adhesiolysis -30 minutes Description of procedure: The patient was taken the operating room. She was prepped and draped in the dorsal supine position with leftward tilt after induction of spinal anesthetic. When anesthesia was found to be adequate a low-transverse skin incision was made and carried down to the level the fascia with the knife. The fascial incision was made at the midline with a scalpel. The fascial incision was extended laterally with Russell scissors. The fascia was tented upward superior and inferior with Denny clamps. The rectus muscles were dissected off bluntly. The rectus muscles at the midline. The preperitoneal fat was dissected bluntly at the superior aspect of the separate the rectus muscles. The peritoneal cavity was entered bluntly in the same area. The peritoneal incision was extended superior and inferior with good visualization of bladder. Extensive adhesiolysis -30 minutes was required to remove it omentum from the anterior abdominal wall incision. Bladder blade was inserted. A low-transverse incision was made on the uterus with the scalpel. It was carried down the level of the amniotic cavity with a knife. The amniotic cavity bluntly. The uterine incision was made laterally with blunt traction. The infant was delivered. The cord was clamped and cut. The infant was handed off to waiting pediatric staff. Cord bloods were obtained. The placenta was removed manually. The uterus was exteriorized. Uterus cleared of all clots and debris. Uterus closed in 0 Vicryl in a running locked fashion. An imbricating layer of 0 Vicryl was also placed on the to bolster the closure. The uterus was returned to the abdomen. The gutters were cleared of all clots and debris. The fascia was closed 0 Vicryl in a running fashion. Subcutaneous tissue was irrigated and bleeding areas were cauterized. The skin was closed with subcuticular absorbable ad. The incision was covered with derma dorsey. The patient tolerated the procedure well. She was taken recovery room stable condition. Sponge, lap, needle counts were correct x2. Anesthesia: spinal Surgeon: Marielena Zhao MD Drains: No Packing: No Pathology: none sent Complications: No immediate complications Condition: stable Disposition: floor Findings: Normal maternal anatomy. Average size with normal Apgars. Adhesions between omentum and the anterior abdominal wall. Breech presentation
[2020-04-12] MEDS: MORPHINE SULFATE (*CRX) 2 MG/ML INJ IV PUSH (18:05)
[2020-04-12] MEDS: KETOROLAC 30 MG/ML VIAL (*BKC) IV PUSH (18:46)
--- NOTE | 2020-04-12 21:19 | OBPPTRN ---
Patient transferred to post room #277 via hospital bed. Support person present. Oriented to unit, room, information board, rooming in, admission packet and security measures. Patient verbalizes understanding.
[2020-04-12] MEDS: DEXTROSE 5%/0.45% SOD CHL 1,000 ML 125 ML IV CONT (22:32)
[2020-04-12] MEDS: HYDROcodone/acetaminophen (*CRX) 5-325 MG TABLET 1 TAB PO (22:38)
[2020-04-13] VITALS (8 sets, daily range): BP systolic 104–130; BP diastolic 54–76; PULSE 64–95; RESP 16–20; TEMP 36.6–37.4; O2SAT 96–99
[2020-04-13] MEDS: HYDROcodone/acetaminophen (*CRX) 5-325 MG TABLET 1 TAB PO ×4 (01:46→19:45)
[2020-04-13] MEDS: IBUPROFEN 600 MG TABLET PO ×4 (01:46→22:05)
[2020-04-13] MEDS: HYDROcodone/acetaminophen (*CRX) 10-325 MG TABLET 1 TAB PO ×2 (05:17→22:48)
[2020-04-13 06:51] LABS: Basophils Absolute Auto 0.1 K/mm3 (0.0-0.1); Basophils Percent Auto 0.5 % (0.2-1.2); Eosinophils Absolute Auto 0.1 K/mm3 (0-0.3); Eosinophils Percent Auto 0.5 % (0-4.4); Hematocrit 34.8 % (37.0-47.0); Hemoglobin 12.3 g/dL (12.0-15.0); Immature Granulocyte Absolute 0.12 K/mm3 (0.00-0.031); Lymphocytes Absolute Auto 2.32 K/mm3 (0.9-3.2); Lymphocytes Percent Auto 18.5 % (18.3-44.2); Mean Corpuscular HGB Conc 35.3 g/dl (32-36); Mean Corpuscular Hemoglobin 34.5 pg (26-34); Mean Corpuscular Volume 97.5 fl (80-100); Mean Platelet Volume 10.5 fl (7.4-10.4); Monocytes Absolute Auto 1.2 K/mm3 (0.1-0.6); Monocytes Percent Auto 9.4 % (2.6-8.5); Neutrophils Absolute Auto 8.8 K/mm3 (1.3-6.7); Neutrophils Percent Auto 70.1 % (45.5-73.1); Platelet Count Result 132 k/mm3 (150-375); Red Blood Count 3.57 M/mm3 (4.2-5.4); Red Cell Distribution Width 13.2 % (11.5-14.5); White Blood Count 12.5 K/mm3 (4.5-10.0)
--- NOTE | 2020-04-13 07:51 | P.PNOB_ITS ---
OB - PN: Subj Subjective Date/time seen: 04/13/20 07:51 Patient comments: no complaints, pain well controlled, tolerating diet and flatus present OB - PN: Obj Data Labs CBC & Chem 7: 04/13/20 05:27 04/12/20 06:26 Labs: Laboratory Results - last 24 hr 04/12/20 04/13/20 06:26 05:27 WBC 12.5 H RBC 3.57 L Hgb 12.3 Hct 34.8 L MCV 97.5 MCH 34.5 H MCHC 35.3 RDW 13.2 Plt Count 132 L MPV 10.5 H Immature Gran % (Auto) 1.0 H Neut % (Auto) 70.1 Lymph % (Auto) 18.5 [place] % (Auto) 9.4 H Eos % (Auto) 0.5 Baso % (Auto) 0.5 Lymph # (Auto) 2.32 [place] # (Auto) 1.2 H Eos # (Auto) 0.1 Baso # (Auto) 0.1 Abs Immat Gran (auto) 0.12 H Absolute Neuts (auto) 8.8 H Absolute Nucleated RBC 0.0 Nucleated RBC % 0.0 RPR Non-reactive Imaging Radiologist's impression: Impressions Obstetrics Ultrasound 04/12/20 13:38 IMPRESSION: 1. Single fetus in transverse presentation with heart rate 137 beats per m inute. 2. OWEN 8.2 cm, lower limits of normal. OB - PN A/P Plan day: 1 Comments: Post Op LTCS - no problems, routine recovery Time Spent With Patient Time: Total time spent is greater than 50% in coordination of care (as documented) at patient's floor/unit and/or counseling patient: Exam 2 Const: General: cooperative, healthy appearing, comfortable and no acute distress Resp: Auscultation: no crackles, no rales, no rhonchi and no wheezes Cardio: Rhythm: regular rhythm Heart sounds: no click and no murmurs GI: Inspection: non-distended Auscultation: normal bowel sounds Extrem: General: normal to inspection, no pedal edema and no calf tenderness
--- NOTE | 2020-04-13 09:00 | PC.NURSE ---
Mother called out for assist with feeding. Consulted with patient, reports has fed inconsistently, she has supplemented and pumped. Mother pumped 30 mls last session. Discussed the early 37 week , establishing may have its own unique set of circumstances due to their immaturity. infants may be less alert, have less stamina and may have issues with latch, suck and swallow. With the possible inability to have a vigorous suck swallow, infants may not be adequately stimulating mother and/or able to have adequate milk transfer. Reviewed infant feeding cues, frequencies, duration of feedings, feeding elimination flow sheet, and signs of adequate intake. Demonstrated stimulation techniques to wake infant for feeding. Assisted with infant to breast. Reviewed positioning/alignment in cross cradle, holding breast in U hold and guided asymmetrical latch on. Infant was able to latch correctly within a few attempts. nursed eagerly, with sort chewy sucks with intermittent steady draws and occasional swallowing noted. Reviewed signs of a correct latch, effective nursing and suck swallow ratio. Infant was able to maintain latch. Mother reported tenderness at times, infant had slipped to shallow latch. Demonstrated how to adjust latch more deeply while feeding. Mother quickly reports she can feel is latched more deeply and has minimal tenderness. Suggested to stimulate while feeding to keep awake and nursing effectively for increased stimulation and increased intake. Instructed mother to call out for RN assistance if she is unable to latch infant for feeding or she has discomfort with nursing. Instructed feeding should be initiated three hours from start of last feeding or if feeding cues are noted before. Mother voiced understanding of information shared. Mother will follow breastfeedings with supplementation of EBM/formula and pumping. Reviewed instructions given on breast pump care and usage, pumping schedule, nipple care, and collection and storage of breast milk. Encouraged [id number], breast massage and manual expression to stimulate supply. Assessed patient for correct flange size, placement and draw. Patient verbalizes and demonstrates understanding of instructions.
[2020-04-13] MEDS: MULTIVIT/MIN/PREN/FOL AC/IRON TABLET 1 TAB PO (09:15)
[2020-04-13] MEDS: DOCUSATE SODIUM 100 MG CAPSULE PO ×2 (09:52→15:31)
--- NOTE | 2020-04-13 13:24 | WPDANLDNPN2 ---
Anes-Prog Note L&D-Neuraxial Date/Time: 04/13/20 13:24 Neuraxial medications: intrathecal PF morphine Opiod-related complaints: pruritis mild, no treatment Patient feedback: Patient satisfied with post-operative pain management.
--- NOTE | 2020-04-13 13:24 | WPDANLDPN2 ---
Anes-Prog Note L&D Date/Time: 04/13/20 13:24 Comfortable throughout: section Neuraxial method: spinal Epidural/Spinal procedure site: clean & non-tender Neuro status: Neuro function grossly intact. Cardiovascular status: normal Respiratory status: normal Airway patency: baseline Mental status: baseline Post-Op hydration status: normal Vital Signs: Last Vital Signs Temp 37.4 C 04/13/20 12:00 Pulse 64 04/13/20 12:00 Resp 18 04/13/20 12:00 BP 113/54 L 04/13/20 12:00 Pulse Ox 99 04/13/20 12:00 Pain score (VAS): 02/14 I/O: Intake & Output 04/12/20 04/13/20 04/13/20 23:59 07:59 15:59 Intake Total 3000 Output Total 1130 1200 Balance -1130 1800 Post-procedural complaints: none Patient feedback: Patient satisfied with anesthetic care.
[2020-04-13] MEDS: RHO(D) IMMUNE GLOBULIN 300 MCG SYRINGE IM (15:38)
[2020-04-14] MEDS: HYDROcodone/acetaminophen (*CRX) 10-325 MG TABLET 1 TAB PO ×4 (01:50→12:08)
[2020-04-14 05:30] VITALS: BP 110/56; PULSE 80; RESP 16; TEMP 36.9
[2020-04-14] MEDS: IBUPROFEN 600 MG TABLET PO ×2 (05:30→12:07)
--- NOTE | 2020-04-14 07:39 | PM.OBPNVD ---
OB - PN: Subj Subjective Date/time seen: 04/14/20 07:39 Patient comments: no complaints, pain well controlled, incisional pain, tolerating diet and flatus present OB - PN: Obj Data Labs CBC & Chem 7: 04/13/20 05:27 04/12/20 06:26 Labs: Laboratory Results - last 24 hr 04/13/20 05:27 Blood Type A Negative Antibody Screen TNP Screen Negative Baby's Blood Type O pos Baby's MAHAD Negative Doses of RhIg Required 1 OB - PN A/P Plan day: 2 Plan: routine care Comments: POD#2 LTCS - no problems, to d/c Time Spent With Patient Time: Total time spent is greater than 50% in coordination of care (as documented) at patient's floor/unit and/or counseling patient: Exam Const: General: comfortable, no acute distress and alert Resp: Effort & Inspection: normal respiratory effort Auscultation: no crackles, no rales and no rhonchi Cardio: Rate: regular rate Heart sounds: no click, no murmurs and no rubs GI: Inspection: non-distended GI Palp: No Tenderness to palpation present (GI) Auscultation: normal bowel sounds Other: Incision - CDI Extrem: General: normal to inspection, no pedal edema and no calf tenderness
--- NOTE | 2020-04-14 07:39 | PM.OBDSVD ---
DS: Admitting Diagnosis Admitting Diagnosis Admitting Diagnosis: term DS: Discharge Diagnosis Discharge Diagnosis (1) delivery delivered: Code(s): O82 - Encounter for delivery without indication Status: Acute OB - DS: Summary OB Procedures : NST and Ultrasound OB Procedures Intrapartum: OB Procedures: : None Peripartum Data Procedures: Procedures Operation Date: 04/12/20 14:00 Actual Procedures Side Surgeon p Section Marielena Zhao MD Time Spent with Patient Time attestation: Total time spent providing and/or coordinating discharge services: DS: Data Data Completed and Pending Pending studies at discharge: Pending at discharge 04/12/20 16:52 Surgical [PTH] Routine Labs on day of discharge: Labs from last 24 hours 04/13/20 05:27 Blood Type A Negative Antibody Screen TNP Screen Negative Baby's Blood Type O pos Baby's MAHAD Negative Doses of RhIg Required 1 Discharge Plan Discharge Discharging Clinician: Marielena Zhao Patient Disposition: Home, Self-Care Activity: pelvic rest Diet: regular Patient Instructions: Antibiotic Form Stand Alone Forms: General Discharge Information Follow-up/Referrals: Marielena Zhao MD [Physician] - Discharge Medications: New hydrocodone-acetaminophen 5-325 mg tablet 1 - 2 tablet PO Q4H PRN (Reason: pain) Qty: 25 RF: 0 Continued prenat.vits,meenakshi,[id number] Tablet 1 tablet PO DAILY RF: 0 Date of admission: 04/12/20 05:54 Primary Care Provider: CharleenKatie Admitting Provider: Marielena Zhao Attending physician on admission: Marielena Zhao Condition: Stable
--- NOTE | 2020-04-14 08:40 | PC.NURSE ---
Consult with pt., mother reports she continues to put to breast each feeding, infant continues to be sleepy with bursts of suckling and returning to sleep. Mother feels has more wakeful bursts of suckling with increased draws each feeding. Mother will supplement EBM/formula and pump. Mother is pumping without difficulties/discomfort and feels her milk supply is increasing. Mother has a double electric pump for home use. Mother is able to independently latch with appropriate positioning/alignment. She denies any nipple discomfort, is feeding as required and waking infant to feed if needed. Infant is currently meeting outcomes for weight, output, jaundice and feeding frequencies. Mother states she feels confident to continue current feeding plan at home. Reviewed transition to breast milk, signs of adequate intake, and engorgement/relief. Instructed to call ICP if intake/output less than required. Reviewed regular medications mother is taking. Information provided per Wanda. Reviewed community resources on the [facility] website and in the Mom/Baby guide. Information on outpatient services provided. Mother has no further questions at this time.
[2020-04-14 08:55] VITALS: BP 101/88; PULSE 88; RESP 18; TEMP 36.7; O2SAT 99
[2020-04-14 09:22] VITALS: PULSE 88; RESP 18; O2SAT 99
[2020-04-14] MEDS: SIMETHICONE 80 MG TAB.CHEW PO ×2 (09:22→12:07)
[2020-04-14] MEDS: MULTIVIT/MIN/PREN/FOL AC/IRON TABLET 1 TAB PO (09:22)
[2020-04-14] MEDS: DOCUSATE SODIUM 100 MG CAPSULE PO (09:22)
--- NOTE | 2020-04-14 12:00 | PC.NURSE ---
PT received discharge instructions per protocol one to one discussion and verbalized understanding of such care. PT has no barriers to learning. Recipient is both pt and her mother.
[2020-04-16 09:08] VITALS: BP 124/64; PULSE 73; RESP 20; TEMP 36.8; O2SAT 100
== END 2020-04-14 12:42 | disposition home or self-care (01) | DRG 788 ==
LOC: ANHLDR 17:36 → ANHOB2 20:25
PROVIDERS: Admitting Provider Obstetrics & Gynecology; PCP Nurse Practitioner Family; Visit Provider Obstetrics & Gynecology
PROC: 10D00Z1 Extraction of Products of Conception, Low, Open Approach (ICD-10-PCS; CPT 59514; principal; 2020-04-12 14:00)
DX: O13.4 Gestational [pregnancy-induced] hypertension without significant proteinuria, complicating childbirth (principal); Z37.0 Single live birth; Z3A.37 37 weeks gestation of pregnancy; O32.2XX0 Maternal care for transverse and oblique lie, not applicable or unspecified; O34.211 Maternal care for low transverse scar from previous cesarean delivery; O99.214 Obesity complicating childbirth; E66.01 Morbid (severe) obesity due to excess calories; O99.892 Other specified diseases and conditions complicating childbirth; N73.6 Female pelvic peritoneal adhesions (postinfective); O99.824 Streptococcus B carrier state complicating childbirth; O14.94 Unspecified pre-eclampsia, complicating childbirth
CPT/HCPCS: 36415; 76815; 80053; 84550; 85025; 85461; 86592; 86850; 86900; 86901; 88307; 90384; A9270; J0131; J0290; J1100; J1885; J2270; J2274; J2370; J2405; J2590; J2765; J2790; J3010; J7120